=== PATIENT | male | born 1980 | race Caucasian/White ===

== ENCOUNTER 2023-08-19 07:54 | Emergency (ER) | payer BC, OTHER ==
[2023-08-19] MEDS ORDERED: KETOROLAC 30 MG/ML INJ ONE (08:30)
[2023-08-19 08:38] LABS: Absolute Eosinophils 0.1 K/uL (0-0.5); Absolute Lymphocytes (CBC) 2.4 K/uL (0.7-4.9); Absolute Monocytes 0.7 K/uL (0.1-1.3); Absolute Neutrophil 6.3 K/uL (1.8-8.0); Basophils % 0.3 % (0-1.3); Eosinophils % 0.8 % (0-4.4); Hematocrit 48.1 % (39.6-49.0); Hemoglobin 16.3 g/dL (13.6-17.9); Lymphocytes % 25.4 % (15.3-44.8); MCH 32.9 pg (27.0-35.0); MCV 96.9 fL (80-100); MPV 9.3 fL (7.6-11.3); Monocytes % 7.3 % (3.3-12.3); Neutrophils % 66.2 % (41.7-73.7); Nucleated Red Blood Cells % 0.1 % (0-0); Platelets 294 thou/uL (152-406); RBC Red Blood Cell Count 4.96 M/uL (4.33-5.43); Red Cell Distribution Width 12.9 % (12.1-15.2)
[2023-08-19 08:45] LABS: PT Prothrombin Time 10.8 SECONDS (9.5-12.5); Protime INR 0.98
[2023-08-19 08:59] LABS: Anion Gap 7.3 mEq/L (5.0-15.0); Bilirubin Direct 0.1 mg/dL (0-0.2); Bilirubin Indirect, Calculated 0.3 mg/dL (0.2-0.8); Bilirubin Total 0.4 mg/dL (0.2-1.0); Globulin 4.1 g/dL (2.3-3.5); Potassium 4.3 mEq/L (3.5-5.1); Protein, Total 8.1 g/dL (6.4-8.2)
--- NOTE | 2023-08-19 09:44 | RAD REPORT ---
EXAM DESCRIPTION: CT - Head C Spine Cap Eron Romo - 08/19/2023 8:38 am CLINICAL HISTORY: back trauma, stool incont, bilat UE numbness COMPARISON: No comparisons TECHNIQUE: Head and cervical spine CT images were obtained without IV contrast. Chest, abdomen, and pelvis CT images were obtained following intravenous administration of 100 mL Isovue-300. Multiplanar reformats were generated and reviewed. All CT scans are performed using dose optimization technique as appropriate and may include automated exposure control or mA/KV adjustment according to patient size. FINDINGS: CT HEAD: No intracranial hemorrhage, mass effect, or edema. No evidence of acute territorial infarct. No midli ne shift or abnormal fluid collection. The ventricles are normal in caliber and configuration for age . Basal cisterns are patent. Mastoid air cells are well aerated. Up to moderate mucosal thickening al george the left maxillary sinus. No acute skull fracture. CT CERVICAL SPINE: No acute cervical spine fracture or subluxation. Vertebral body heights are well maintained. Bilatera l upper/maxillary unerupted supernumerary incisors. Facet joints are normal in alignment. Mild straig htening of normal cervical lordosis which may be positional or secondary to muscle spasm anterior pro minent osteophytes at C4-5 and C5-6. No hyperattenuating canal hematoma. Prevertebral and paraspinous soft tissues are unremarkable. CT CHEST: No pneumothorax, pulmonary contusion or pleural fluid collection. No mediastinal hematoma and the aor ta and pulmonary arteries are unremarkable. No chest will mass or abnormal axillary finding. No displ aced rib fracture or other significant bony finding. CT ABDOMEN/ PELVIS: No evidence of traumatic injury to solid abdominal viscera. Gallbladder and biliary tree are unremark able. No bowel injury or significant finding. No free air, free fluid or abnormal fat stranding. No u rinary bladder abnormality. No significant bony finding. IMPRESSION: No acute traumatic findings.
--- NOTE | 2023-08-19 09:47 | EDPHYS ---
Physician Documentation [facility] Name: Deven Canales Age: 43 yrs Sex: Male : 1980 Arrival Date: 08/19/2023 Time: 07:54 Bed 4 Private MD: ED Physician Brynn Buck HPI: 08/18 08:20 This 43 yrs old Male presents to ER via Ambulatory with complaints of Back Pain, sp3 Numbness Of Hand, Numbness of Feet, Loose Stools. 08:20 43-year-old male with chronic back pain secondary to a sacral injury several years ago sp3 now presents to the ED with chief complaint low back pain, bilateral upper extremity numbness and tingling, and occasional stool incontinence over the last 3 to 4 days. Patient states he had a steel injury while at work approximately 5 days ago to his mid back but he has no current pain at the mid back region. He denies urine incontinence, headache, change in mental status, weakness although he states that he has occasionally dropped tools at work. 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 He is not on any current medications though he has been out of his tramadol which is what he manages his pain with for several weeks. On review of systems he denies headache, URI symptoms, fever, neck pain, chest pain, shortness of breath, upper back pain, syncope, near syncope, gait dysfunction, or any other signs or symptoms on ROS at this time.. Historical: - Allergies: 08:08 Abilify; ap3 - Home Meds: 08:08 Tramadol Oral [Active]; gabapentin oral [Active]; ap3 - PMHx: 08:08 Chronic back pain; ap3 - Immunization history:: Client reports having NOT received the Covid vaccine. - Infectious Disease History:: Denies. - Social history:: Smoking status: Patient reports the use of cigarette tobacco products, smokes one-half pack cigarettes per day. ROS: 08:22 Constitutional: Negative for fever, chills, and weight loss, Eyes: Negative for injury, sp3 pain, redness, and discharge, ENT: Negative for injury, pain, and discharge, Neck: Negative for injury, pain, and swelling, Cardiovascular: Negative for chest pain, palpitations, and edema, Respiratory: Negative for shortness of breath, cough, wheezing, and pleuritic chest pain, Abdomen/GI: Negative for abdominal pain, nausea, vomiting, diarrhea, and constipation, Skin: Negative for injury, rash, and discoloration, Psych: Negative for depression, anxiety, suicide ideation, homicidal ideation, and hallucinations, Allergy/Immunology: Negative for hives, rash, and allergies, Endocrine: Negative for neck swelling, polydipsia, polyuria, polyphagia, and marked weight changes, Hematologic/Lymphatic: Negative for swollen nodes, abnormal bleeding, and unusual bruising, 08:22 All other systems are negative, Exam: 08:24 Constitutional: This is a well developed, well nourished patient who is awake, alert, sp3 and in no acute distress. Head/Face: Normocephalic, atraumatic. Eyes: Pupils equal round and reactive to light, extra-ocular motions intact. Lids and lashes normal. Conjunctiva and sclera are non-icteric and not injected. Cornea within normal limits. Periorbital areas with no swelling, redness, or edema. ENT: Nares patent. No nasal discharge, no septal abnormalities noted. External auditory canals are clear. Oropharynx with no redness, swelling, or masses, exudates, or evidence of obstruction, uvula midline. Mucous membranes moist. Neck: Trachea midline, no thyromegaly or masses palpated, and no cervical lymphadenopathy. Supple, full range of motion without nuchal rigidity, or vertebral point tenderness. No Meningismus. Chest/axilla: Normal chest wall appearance and motion. Nontender with no deformity. No lesions are appreciated. Cardiovascular: Regular rate and rhythm with a normal S1 and S2. No gallops, murmurs, or rubs. Normal PMI, no JVD. No pulse deficits. Respiratory: Lungs have equal breath sounds bilaterally, clear to auscultation and percussion. No rales, rhonchi or wheezes noted. No increased work of breathing, no retractions or nasal flaring. Abdomen/GI: Soft, non-tender, with normal bowel sounds. No distension or tympany. No guarding or rebound. No evidence of tenderness throughout. Back: No spinal tenderness. No costovertebral tenderness. Full range of motion. Skin: Warm, dry with normal turgor. Normal color with no rashes, no lesions, and no evidence of cellulitis. MS/ Extremity: Pulses equal, no cyanosis. Neurovascular intact. Full, normal range of motion. Neuro: Awake and alert, GCS 15, oriented to person, place, time, and situation. Cranial nerves II-XII grossly intact. Motor strength 5/5 in all extremities. Sensory grossly intact. Cerebellar exam normal. Normal gait. Psych: Awake, alert, with orientation to person, place and time. Behavior, mood, and affect are within normal limits. 08:24 Neuro: Normal neurological exam including two point discrimination to the distal extremities. Patient does still report tingling and numbness but objectively I cannot find any deficits., 08:26 ECG was reviewed by the Attending Physician. EKG demonstrates normal sinus rhythm at 81 sp3 bpm with normal intervals, leftward axis, J-point elevation laterally with no evidence of acute ischemia. Vital Signs: 08:05 BP 160 / 115; Pulse 91; Resp 18; Temp 97.8; Pulse Ox 98% ; Weight 86.18 kg; Height 5 ap3 ft. 8 in. ; Pain 7/10; 10:00 BP 150 / 98; Pulse 81; Resp 18; Temp 97.8(O); Pulse Ox 99% on R/A; rs5 08:05 Body Mass Index 28.89 (86.18 kg, 172.72 cm) ap3 08:05 Pain Scale: Adult ap3 MDM: 08:12 Patient medically screened. sp3 08:25 Data reviewed: vital signs, nurses notes, lab test result(s), EKG, radiologic studies. sp3 ED course: 43-year-old male with widespread symptoms of numbness and tingling in both upper and lower extremities coupled with stool incontinence. Given the significance of the symptoms, we will obtain CT scan of the head, C-spine, chest abdomen pelvis looking at both aortic etiology as a cause of his symptoms as well as assessing his spinal cord and surrounding bony structures. General laboratory values and EKG also pending. If workup is negative, we will safely discharge him home with limited work duties and follow back up with his PCP in [place]. Otherwise other interventions will be added on as indicated.. 09:45 ED course: Full workup negative on this patient. He is ambulating without difficulty. sp3 Blood pressure is somewhat lower. I have advised him to follow-up with his PCP regarding his blood pressure. Will start him back on his tramadol and discharge him home at this time.. 08/18 08:19 Order name: Basic Metabolic Panel; Complete Time: 09:07 sp3 08/18 08:19 Order name: CBC with Diff; Complete Time: 09:07 sp3 08/18 08:19 Order name: LFT's; Complete Time: 09:07 sp3 08/18 08:19 Order name: PT-INR; Complete Time: 09:07 sp3 08/18 08:23 Order name: Troponin High Sensitivity; Complete Time: 09:07 sp3 08/18 08:19 Order name: CT Traumagram (Head C Spine CAP W Con); Complete Time: 09:45 sp3 08/18 08:23 Order name: EKG; Complete Time: 08:23 sp3 08/18 08:19 Order name: Labs collected and sent; Complete Time: 08:32 sp3 08/18 08:19 Order name: NPO; Complete Time: 08:32 sp3 08/18 08:23 Order name: EKG - Nurse/Tech; Complete Time: 08:32 sp3 Administered Medications: 08:32 Drug: Ketorolac IVP 15 mg IVP once Route: IVP; Site: right antecubital; rs5 09:00 Follow up: Response: No adverse reaction; Pain is decreased rs5 Disposition Summary: 08/19/23 09:46 Discharge Ordered Notes: Location: Home sp3 Condition: Stable sp3 Diagnosis - Back pain, paresthesias sp3 Followup: sp3 - With: Private Physician - When: Upon discharge from the Emergency Department - Reason: Continuance of care Discharge Instructions: - Discharge Summary Sheet sp3 - Acute Back Pain, Adult sp3 Forms: - Medication Reconciliation Form sp3 - Thank You Letter sp3 - Antibiotic Education sp3 - Prescription Opioid Use sp3 - Patient Portal Instructions sp3 - Leadership Thank You Letter sp3 - Work release form rs5 Prescriptions: - Tramadol 50 mg Oral Tablet - take 1 tablet ORAL route every 8 hours as needed; 12 tablet; Refills: 0, sp3 Product Selection Permitted Signatures: Dispatcher [employer] Mary Farfan RN RN ap3 Brynn Buck MD MD sp3 Dominic Monzon RN RN rs5 Corrections: (The following items were deleted from the chart) 08:10 08:08 Allergies: No Known Allergies; ap3 ap3
--- NOTE | 2023-08-19 09:47 | ER ---
Nurse's Notes [facility] Name: Deven Canales Age: 43 yrs Sex: Male : 1980 Arrival Date: 08/19/2023 Time: 07:54 Bed 4 Private MD: Diagnosis: Back pain, paresthesias Presentation: 08/18 08:05 Chief complaint: Patient states: he fell and broke his sacral bone 5 months ago. ap3 patient is complaining of bilateral hand and foot numbness over the last two-three days with lower back pain of which he rates a 7/10. patient also reports difficulty controlling his bowel movements. Coronavirus screen: At this time, the client does not indicate any symptoms associated with coronavirus-19. Ebola Screen: No symptoms or risks identified at this time. Initial Sepsis Screen: Does the patient meet any 2 criteria? No. Patient's initial sepsis screen is negative. Does the patient have a suspected source of infection? No. Patient's initial sepsis screen is negative. Risk Assessment: Do you want to hurt yourself or someone else? Patient reports no desire to harm self or others. Onset of symptoms is unknown. 08:05 Method Of Arrival: Ambulatory ap3 08:21 Acuity: LEVON 2 ap3 Triage Assessment: 08:10 General: Appears in no apparent distress. Behavior is calm, cooperative. Pain: ap3 Complains of pain in low back area Pain currently is 7 out of 10 on a pain scale. Pain began gradually. Neuro: Level of Consciousness is awake, alert, obeys commands, Oriented to person, place, time, situation. Cardiovascular: Patient's skin is warm and dry. Respiratory: Airway is patent Respiratory effort is even, unlabored, Respiratory pattern is regular, symmetrical. Musculoskeletal: Range of motion: intact in all extremities. Historical: - Allergies: 08:08 Abilify; ap3 - Home Meds: 08:08 Tramadol Oral [Active]; gabapentin oral [Active]; ap3 - PMHx: 08:08 Chronic back pain; ap3 - Immunization history:: Client reports having NOT received the Covid vaccine. - Infectious Disease History:: Denies. - Social history:: Smoking status: Patient reports the use of cigarette tobacco products, smokes one-half pack cigarettes per day. Screenin:11 Abuse screen: Denies threats or abuse. Nutritional screening: No deficits noted. ap3 Tuberculosis screening: No symptoms or risk factors identified. 08:11 [facility] ED Fall Risk Assessment (Adult) History of falling in the last 3 months, rs5 including since admission No falls in past 3 months (0 pts) Confusion or Disorientation No (0 pts) Intoxicated or Sedated No (0 pts) Impaired Gait No (0 pts) Mobility Assist Device Used No (0 pt) Altered Elimination No (0 pt) Score/Fall Risk Level 0 - 2 = Low Risk Oriented to surroundings, Maintained a safe environment. Assessment: 08:12 General: Appears in no apparent distress. uncomfortable, Behavior is calm, cooperative. rs5 Pain: Complains of pain in low back area Pain currently is 7 out of 10 on a pain scale. Quality of pain is described as aching, Is continuous. Neuro: Level of Consciousness is awake, alert, obeys commands, Oriented to person, place, time, situation, [employer] are equal bilaterally Moves all extremities. Gait is steady, Speech is normal, Facial symmetry appears normal, Pupils are PERRLA, Intact Reports numbness in hand and feet bilat. Cardiovascular: Patient's skin is warm and dry. Rhythm is regular. Respiratory: Airway is patent Respiratory effort is even, unlabored, Respiratory pattern is regular, symmetrical. 08:12 GI: Abdomen is round non-distended, Bowel sounds present X 4 quads. Abd is soft and non rs5 tender X 4 quads. Reports indigestion. : No signs and/or symptoms were reported regarding the genitourinary system. EENT: No signs and/or symptoms were reported regarding the EENT system. Derm: Skin is intact, Skin is pink, warm \T\ dry. Musculoskeletal: Range of motion: intact in all extremities. 09:15 Reassessment: Patient and/or family updated on plan of care and expected duration. Pain rs5 level reassessed. Patient is alert, oriented x 3, equal unlabored respirations, skin warm/dry/pink. Patient denies pain at this time. Patient states feeling better. Patient states symptoms have improved. 10:09 Reassessment: No changes from previously documented assessment. rs5 Vital Signs: 08:05 BP 160 / 115; Pulse 91; Resp 18; Temp 97.8; Pulse Ox 98% ; Weight 86.18 kg; Height 5 ap3 ft. 8 in. ; Pain 7/10; 10:00 BP 150 / 98; Pulse 81; Resp 18; Temp 97.8(O); Pulse Ox 99% on R/A; rs5 08:05 Body Mass Index 28.89 (86.18 kg, 172.72 cm) ap3 08:05 Pain Scale: Adult ap3 ED Course: 07:58 Patient arrived in ED. rg4 07:59 Brynn Buck MD is Attending Physician. sp3 08:08 Triage completed. ap3 08:11 Arm band placed on right wrist. ap3 08:11 Patient has correct armband on for positive identification. Placed in gown. Bed in low rs5 position. Call light in reach. Side rails up X2. 08:28 Dominic Monzon, LOUIS is Primary Nurse. rs5 08:33 PT-INR Sent. [email or web address] 08:33 LFT's Sent. [email or web address] 08:33 Basic Metabolic Panel Sent. [email or web address] 08:33 CBC with Diff Sent. [email or web address] 08:33 Initial lab(s) drawn, by me, sent to lab. EKG done, by ED staff. Inserted saline lock: jg11 20 gauge in right antecubital area, using aseptic technique. Blood collected. 08:33 Troponin High Sensitivity Sent. [email or web address] 08:34 No provider procedures requiring assistance completed. rs5 08:40 CT Traumagram (Head C Spine CAP W Con) In Process Unspecified. EDMS 10:10 IV discontinued, intact, bleeding controlled, No redness/swelling at site. Pressure rs5 dressing applied. Administered Medications: 08:32 Drug: Ketorolac IVP 15 mg IVP once Route: IVP; Site: right antecubital; rs5 09:00 Follow up: Response: No adverse reaction; Pain is decreased rs5 Medication: 08:34 VIS not applicable for this client. rs5 Outcome: 09:46 Discharge ordered by . sp3 10:10 Discharged to home ambulatory, rs5 10:10 Condition: stable 10:10 Discharge instructions given to patient, family, Instructed on discharge instructions, follow up and referral plans. Demonstrated understanding of instructions, follow-up care, 10:10 Patient left the ED. rs5 Signatures: Dispatcher [employer] EDMS Monique Patricia rg4 Mary Tijerina RN RN ap3 Brynn Buck MD MD sp3 Dominic Monzon RN RN rs5 Delroy Soriano [email or web address] Corrections: (The following items were deleted from the chart) 08:10 08:08 Allergies: No Known Allergies; ap3 ap3 08:21 08:05 Acuity: LEVON 3 ap3 ap3
[2023-08-19 11:08] VITALS: BP 150/98; TEMP 97.8; O2SAT 99
== END 2023-08-19 10:10 | disposition home or self-care (01) ==
LOC: ER 07:54
DX: M54.9 Dorsalgia, unspecified (principal); R20.2 Paresthesia of skin; F17.210 Nicotine dependence, cigarettes, uncomplicated; Z88.8 Allergy status to other drugs, medicaments and biological substances
CPT/HCPCS: 85025; 80048; 36415; 85610; 80076; 84484; 70450; 72125; 71260; 74177; 96374; 99284; Q9967; 93005